=== PATIENT | female | born 1990 | race Caucasian/White ===

== ENCOUNTER 2020-03-28 00:03 | Inpatient (IN) | payer BC ==
[2020-03-28] MEDS ORDERED: Ampicillin 2 GM in Sodium Chloride 0.9% 100 ML IV ONE (00:30)
[2020-03-28] MEDS ORDERED: Nalbuphine 10 MG/ML Syringe IVPUSH PRN (00:40)
[2020-03-28] MEDS ORDERED: Calcium Carbonate 500 MG Tab.Chew PO PRN (00:40)
[2020-03-28] MEDS ORDERED: Sodium Chloride 0.9% 10 ML Syringe FLUSH PRN (00:40)
[2020-03-28] MEDS ORDERED: Lidocaine 1% 50 ML MDV INJECT ONE (00:40)
[2020-03-28] MEDS ORDERED: Oxytocin/Lactated Ringers 10 UNIT/1,000 ML BAG IV SCH ×2 (00:45)
[2020-03-28] MEDS: Lactated Ringers 1,000 ML IV SCH ×3 (01:06→17:00)
[2020-03-28] MEDS ORDERED: Labetalol 100 MG/20 ML MDV IVPUSH ONE (01:44)
[2020-03-28] MEDS ORDERED: Magnesium Sulfate/Water 2 GM in Premix Bag 1 BAG IV ONE (01:45)
[2020-03-28] MEDS ORDERED: Magnesium Sulfate/Water 4 GM in Premix Bag 1 BAG IV ONE (01:45)
[2020-03-28] MEDS ORDERED: Magnesium Sulfate/Water 50 ML ONE (01:46)
[2020-03-28] MEDS: Magnesium Sulfate/Water 40 GM/1,000 ML BAG IV SCH ×2 (02:20→21:16)
[2020-03-28] MEDS ORDERED: Ondansetron 4 MG/2 ML SDV IVPUSH PRN (02:59)
[2020-03-28] MEDS ORDERED: ePHEDrine 50 MG/ML SDV IVPUSH PRN (02:59)
[2020-03-28] MEDS ORDERED: fentaNYL 100 MCG/2 ML SDV EPIDUR PRN (02:59)
[2020-03-28] MEDS ORDERED: Phenylephrine 1 MG in Sodium Chloride 0.9% 10 ML IV SCH (03:00)
--- NOTE | 2020-03-28 03:03 | PCM.PREANE ---
Preanesthetic Assessment - Procedure Proposed Procedure: epidural - Anesthesia/Transfusion/Family Hx Anesthesia History: Prior Anesthesia Without Reaction Family History of Anesthesia Reaction: No Transfusion History: No Prior Transfusion(s) Intubation History: Unknown - Review of Systems General: No Symptoms Pulmonary: No Symptoms Cardiovascular: No Symptoms (PIH) Gastrointestinal: No Symptoms (GERD), Constipation Neurological: No Symptoms (Chronic back pain) Other: Reports: None, Neck Pain (chronic neck pain) - Physical Assessment NPO Status Date: 03/27/20 NPO Status Time: 03:00 Vital Signs: Last Vital Signs Temp 36.7 C 03/28/20 00:40 Pulse 79 03/28/20 00:40 Resp 16 03/28/20 00:40 BP 168/98 H 03/28/20 00:40 Pulse Ox Height: 1.65 m Weight: 99.291 kg ASA Class: 2 Mental Status: Alert & Oriented x3 Airway Class: Mallampati = 2 Dentition: Reports: Normal Dentition, Caries Thyro-Mental Finger Breadths: 3 Mouth Opening Finger Breadths: 3 ROM/Head Extension: Full Lungs: Clear to Auscultation, Normal Respiratory Effort Cardiovascular: Regular Rate, Regular Rhythm, No Murmurs - Lab Values: Laboratory Last Values WBC 10.89 K/mm3 (3.98-10.04) H 03/28/20 01:01 RBC 4.32 M/mm3 (3.98-5.22) 03/28/20 01:01 Hgb 13.0 gm/dl (11.2-15.7) 03/28/20 01:01 Hct 38.8 % (34.1-44.9) 03/28/20 01:01 MCV 89.8 fl (79.4-94.8) 03/28/20 01:01 MCH 30.1 pg (25.6-32.2) 03/28/20 01:01 MCHC 33.5 g/dl (32.2-35.5) 03/28/20 01:01 RDW Std Deviation 44.7 fL (36.4-46.3) 03/28/20 01:01 Plt Count 316 K/mm3 (182-369) 03/28/20 01:01 MPV 10.9 fl (9.4-12.3) 03/28/20 01:01 Neut % (Auto) 70.0 % (34.0-71.1) 03/28/20 01:01 Lymph % (Auto) 20.5 % (19.3-51.7) 03/28/20 01:01 [place] % (Auto) 8.3 % (4.7-12.5) 03/28/20 01:01 Eos % (Auto) 0.6 (0.7-5.8) L 03/28/20 01:01 Baso % (Auto) 0.3 % (0.1-1.2) 03/28/20 01:01 Neut # (Auto) 7.64 K/mm3 (1.56-6.13) H 03/28/20 01:01 Lymph # (Auto) 2.23 K/mm3 (1.18-3.74) 03/28/20 01:01 [place] # (Auto) 0.90 K/mm3 (0.24-0.36) H 03/28/20 01:01 Eos # (Auto) 0.06 K/mm3 (0.04-0.36) 03/28/20 01:01 Baso # (Auto) 0.03 K/mm3 (0.01-0.08) 03/28/20 01:01 BUN 13 mg/dL (7-18) 03/28/20 01:01 Creatinine 0.7 mg/dL (0.55-1.02) 03/28/20 01:01 Est Cr Clr Drug Dosing 105.74 mL/min 03/28/20 01:01 Estimated GFR (MDRD) > 60 mL/min (>60) 03/28/20 01:01 Uric Acid 8.0 mg/dL (2.6-6.0) H 03/28/20 01:01 AST 30 U/L (15-37) 03/28/20 01:01 ALT 24 U/L (14-59) 03/28/20 01:01 Lactate Dehydrogenase 238 U/L (81-234) H 03/28/20 01:01 Ur Random Creatinine 83.6 mg/dL (30.0-125.0) 03/28/20 01:05 U Random Total Protein 246.0 mg/dL (0.0-11.8) H 03/28/20 01:05 Protein/Creatinin Ratio 2942.6 mg/g (0-149) H 03/28/20 01:05 Blood Type A POSITIVE 03/28/20 01:01 Gel Antibody Screen Negative 03/28/20 01:01 Above labs reviewed and noted and within acceptable ranges to proceed with epidural. 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: - SUBSTANCE USE Smoking Status *Q: Never Smoker Second Hand Smoke Exposure: No Recreational Drug Use History: No - HOME MEDS Home Medications: Home Meds PNV95/Ferrous Fumarate/FA [ Multivitamins] 1 each PO DAILY 11/03/14 [ History] Cetirizine HCl [Zyrtec] 10 mg PO 03/28/20 [History] - CURRENT (IN HOUSE) MEDS Current Meds: Current Medications Calcium Carbonate/Glycine (Tums) 1,000 mg PO Q2H PRN PRN Reason: Indigestion Ephedrine Sulfate (Ephedrine Sulfate) 5 mg IVPUSH ASDIRECTED PRN PRN Reason: Hypotension Fentanyl (Sublimaze) 100 mcg EPIDUR Q3H PRN PRN Reason: Pain Fentanyl/Bupivacaine HCl (Fentanyl/Bupivacaine/Ns 2 Mcg-0.125% 100 Ml) 100 ml EPIDUR ASDIRECTED RUDDY Ampicillin Sodium 1 gm/ Sodium (Chloride) 100 mls @ 200 mls/hr IV Q4H RUDDY Lactated Ringer's (Ringers, Lactated) 1,000 mls @ 100 mls/hr IV ASDIRECTED RUDDY Last Admin: 03/28/20 01:06 Dose: 100 mls/hr Oxytocin/Lactated Ringer's (Pitocin In Lr 10 Units/1,000 Ml) 10 unit in 1,000 mls @ 12 mls/hr IV TITRATE RUDDY; Protocol Oxytocin/Lactated Ringer's (Pitocin In Lr 10 Units/1,000 Ml) 10 unit in 1,000 mls @ 500 mls/hr IV .CONTINUOUS RUDDY Magnesium Sulfate (Magnesium Sulfate In Water Premix) 40 gm in 1,000 mls @ 50 mls/hr IV ASDIRECTED RUDDY Last Admin: 03/28/20 02:20 Dose: 50 mls/hr Phenylephrine HCl 1 mg/ Sodium (Chloride) 10.1 mls @ 1 mls/sec IV TITRATE RUDDY; Protocol Nalbuphine HCl (Nubain) 10 mg IVPUSH Q2H PRN PRN Reason: Pain Ondansetron HCl (Zofran) 4 mg IVPUSH ONETIME PRN PRN Reason: Nausea/Vomiting Sodium Chloride (Saline Flush) 10 ml FLUSH ASDIRECTED PRN PRN Reason: Keep Vein Open Discontinued Medications Ampicillin Sodium 2 gm/ Sodium (Chloride) 100 mls @ 200 mls/hr IV ONETIME ONE Stop: 03/28/20 00:59 Last Admin: 03/28/20 01:06 Dose: 200 mls/hr Magnesium Sulfate 4 gm/ Premix 50 mls @ 400 mls/hr IV ONETIME ONE Stop: 03/28/20 01:52 Last Admin: 03/28/20 02:11 Dose: 400 mls/hr Magnesium Sulfate 2 gm/ Premix 50 mls @ 300 mls/hr IV ONETIME ONE Stop: 03/28/20 01:54 Last Admin: 03/28/20 02:00 Dose: 300 mls/hr Magnesium Sulfate (Magnesium Sulfate In Water Premix) Confirm Administered Dose 50 mls @ as directed .ROUTE .STK-MED ONE Stop: 03/28/20 01:47 Last Admin: 03/28/20 02:06 Dose: Not Given Labetalol HCl (Normodyne) 20 mg IVPUSH ONETIME ONE; Protocol Stop: 03/28/20 01:45 Last Admin: 03/28/20 01:58 Dose: 20 mg Lidocaine HCl (Xylocaine 1%) 20 ml INJECT ONETIME ONE Stop: 03/28/20 00:41
[2020-03-28] MEDS: Bupivacaine/fentaNYL/NS 100 ML Bag EPIDUR SCH ×2 (03:10→11:51)
[2020-03-28] MEDS: Ampicillin 1 GM in Sodium Chloride 0.9% 100 ML IV SCH ×3 (04:26→12:39)
--- NOTE | 2020-03-28 07:13 | PCM.LDHP ---
L&D History of Present Illness - General Date of Service: 03/28/20 Admit Problem/Dx: Patient Status Order with Admit Dx/Problem 03/28/20 00:40 Patient Status [ADT] Routine Admission Diagnosis/Problem Admission Diagnosis/Problem Term Source of Information: Patient History Limitations: Reports: No Limitations - History of Present Illness Introduction:: Patient is a 29 y/o at 39 2/7 wks who presented in early AM hours after SROM. SROM occurred at about 2300 yesterday. Some mild contractions after that. No concerns when arrived to L&D, but noted to have severe range BP' s. No headaches or vision changes on arrival and still denies these concerns currently. Only issue is heart burn Pain Score: 5 - Related Data Allergies/Adverse Reactions: Allergies Allergy/AdvReac Type Severity Reaction Status Date / Time No Known Allergies Allergy Verified 11/03/14 23:24 Home Medications: Home Meds PNV95/Ferrous Fumarate/FA [ Multivitamins] 1 each PO DAILY 11/03/14 [ History] Cetirizine HCl [Zyrtec] 10 mg PO 03/28/20 [History] Past Medical History - Past Health History Medical/Surgical History: Denies Medical/Surgical History [employer] History: Reports: : 2 Para: 1 LMP (Approximate): Social & Family History - Family History Family Medical History: Noncontributory - Tobacco Use Smoking Status *Q: Never Smoker Second Hand Smoke Exposure: No - Caffeine Use Caffeine Use: Reports: None - Alcohol Use Alcohol Use History: No - Recreational Drug Use Recreational Drug Use: No H&P Review of Systems - Review of Systems: Review Of Systems: See Below General: Reports: No Symptoms Pulmonary: Reports: No Symptoms Cardiovascular: Reports: No Symptoms Gastrointestinal: Reports: Other (heartburn) Genitourinary: Reports: No Symptoms Musculoskeletal: Reports: No Symptoms Psychiatric: Reports: No Symptoms Neurological: Reports: No Symptoms L&D Exam - Exam Exam: See Below - Vital Signs Vital Signs: Last Vital Signs Temp 36.7 C 03/28/20 00:40 Pulse 79 03/28/20 00:40 Resp 16 03/28/20 00:40 BP 168/98 H 03/28/20 00:40 Pulse Ox Weight: 99.291 kg - OB Specific Contraction Intensity: Moderate Movement: Active Heart Tones: Present Heart Rate (FHR) Variability: Moderate (6-25 bmp) Presentation: Vertex - Gillis Score Gillis Score Cervix Position: Midposition Gillis Score Consistency: Soft Gillis Score Effacement: >80% Gillis Score Dilation: 3-4 cm Gillis Score Infant's Station: -2 Gillis Score Total: 9 - Exam General: Alert, Oriented, Cooperative Lungs: Clear to Auscultation, Normal Respiratory Effort Cardiovascular: Regular Rate, Regular Rhythm GI/Abdominal Exam: Soft, Non-Tender Genitourinary: Normal external exam Extremities: Normal Inspection Skin: Warm, Dry, Intact DTR: 1+: Bicep (R), 2+: Patella (R) - Patient Data Lab Results Last 24 hrs: Laboratory Results - last 24 hr 03/28/20 03/28/20 03/28/20 Range/Units 01:01 01:01 01:01 WBC 10.89 H (3.98-10.04) K/mm3 RBC 4.32 (3.98-5.22) M/mm3 Hgb 13.0 (11.2-15.7) gm/dl Hct 38.8 (34.1-44.9) % MCV 89.8 (79.4-94.8) fl MCH 30.1 (25.6-32.2) pg MCHC 33.5 (32.2-35.5) g/dl RDW Std Deviation 44.7 (36.4-46.3) fL Plt Count 316 (182-369) K/mm3 MPV 10.9 (9.4-12.3) fl Neut % (Auto) 70.0 (34.0-71.1) % Lymph % (Auto) 20.5 (19.3-51.7) % [place] % (Auto) 8.3 (4.7-12.5) % Eos % (Auto) 0.6 L (0.7-5.8) Baso % (Auto) 0.3 (0.1-1.2) % Neut # (Auto) 7.64 H (1.56-6.13) K/mm3 Lymph # (Auto) 2.23 (1.18-3.74) K/mm3 [place] # (Auto) 0.90 H (0.24-0.36) K/mm3 Eos # (Auto) 0.06 (0.04-0.36) K/mm3 Baso # (Auto) 0.03 (0.01-0.08) K/mm3 BUN 13 (7-18) mg/dL Creatinine 0.7 (0.55-1.02) mg/dL Est Cr Clr Drug Dosing 105.74 mL/min Estimated GFR (MDRD) > 60 (>60) mL/min Uric Acid 8.0 H (2.6-6.0) mg/dL AST 30 (15-37) U/L ALT 24 (14-59) U/L Lactate Dehydrogenase 238 H (81-234) U/L Ur Random Creatinine (30.0-125.0) mg/dL U Random Total Protein (0.0-11.8) mg/dL Protein/Creatinin Ratio (0-149) mg/g Blood Type A POSITIVE Gel Antibody Screen Negative 03/28/20 Range/Units 01:05 WBC (3.98-10.04) K/mm3 RBC (3.98-5.22) M/mm3 Hgb (11.2-15.7) gm/dl Hct (34.1-44.9) % MCV (79.4-94.8) fl MCH (25.6-32.2) pg MCHC (32.2-35.5) g/dl RDW Std Deviation (36.4-46.3) fL Plt Count (182-369) K/mm3 MPV (9.4-12.3) fl Neut % (Auto) (34.0-71.1) % Lymph % (Auto) (19.3-51.7) % [place] % (Auto) (4.7-12.5) % Eos % (Auto) (0.7-5.8) Baso % (Auto) (0.1-1.2) % Neut # (Auto) (1.56-6.13) K/mm3 Lymph # (Auto) (1.18-3.74) K/mm3 [place] # (Auto) (0.24-0.36) K/mm3 Eos # (Auto) (0.04-0.36) K/mm3 Baso # (Auto) (0.01-0.08) K/mm3 BUN (7-18) mg/dL Creatinine (0.55-1.02) mg/dL Est Cr Clr Drug Dosing mL/min Estimated GFR (MDRD) (>60) mL/min Uric Acid (2.6-6.0) mg/dL AST (15-37) U/L ALT (14-59) U/L Lactate Dehydrogenase (81-234) U/L Ur Random Creatinine 83.6 (30.0-125.0) mg/dL U Random Total Protein 246.0 H (0.0-11.8) mg/dL Protein/Creatinin Ratio 2942.6 H (0-149) mg/g Blood Type Gel Antibody Screen Result Diagrams: 03/28/20 01:01 03/28/20 01:01 - Problem List (1) 39 weeks gestation of SNOMED Code(s): 03361618 ICD Code: Z3A.39 - 39 WEEKS GESTATION OF Status: Acute Current Visit: Yes (2) Spontaneous rupture of membranes SNOMED Code(s): 973969803 ICD Code: [id number] - Status: Acute Current Visit: Yes (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 SNOMED Code(s): 4112917296624 ICD Code: Z22.330 - CARRIER OF GROUP B STREPTOCOCCUS Status: Acute Current Visit: Yes (4) Severe preeclampsia SNOMED Code(s): 73901740 ICD Code: O14.10 - SEVERE PRE-ECLAMPSIA, UNSPECIFIED TRIMESTER Status: Acute Current Visit: Yes Qualifiers: Trimester: third trimester Qualified Code(s): O14.13 - Severe pre-eclampsia , third trimester Problem List Initiated/Reviewed/Updated: Yes Orders Last 24hrs: Active Orders 24 hr Category Date Time Status Patient Status [ADT] Routine ADT 03/28/20 00:40 Active Activity as Tolerated [RC] PFP Care 03/28/20 00:40 Active Communication Order [RC] ASDIRECTED Care 03/28/20 00:40 Active Heart Tones [RC] ASDIRECTED Care 03/28/20 00:41 Active Notify Provider [RC] ASDIRECTED Care 03/28/20 02:59 Active Notify Provider [RC] PFP Care 03/28/20 00:40 Active Notify Provider [RC] PRN Care 03/28/20 00:40 Active Peripheral IV Care [RC] Q2HR Care 03/28/20 00:41 Active Pulse Oximetry [RC] ASDIRECTED Care 03/28/20 02:59 Active Pump Management, Intrathecal [RC] ASDIRECTED Care 03/28/20 00:44 Active Urinary Catheter Assessment [RC] ASDIRECTED Care 03/28/20 00:40 Active Regular Diet [DIET] Diet 03/28/20 Breakfast Active PATIENT RETYPE [BBK] Routine Lab 03/28/20 01:49 Ordered RAPID PLASMA REAGIN,RPR [CHEM] Stat Lab 03/28/20 01:01 Received TYPE AND SCREEN [BBK] Stat Lab 03/28/20 01:01 Results Ampicillin 1 gm Med 03/28/20 04:30 Active Sodium Chloride 0.9% [Normal Saline] 100 ml IV Q4H Bupivacaine/fentaNYL/NS [fentaNYL/Bupivacaine/NS 2 MCG- Med 03/28/20 03:00 Active 0.125% 100 ML] 100 ml EPIDUR ASDIRECTED Calcium Carbonate [Tums] Med 03/28/20 00:40 Active 1,000 mg PO Q2H PRN Lactated Ringers [Ringers, Lactated] 1,000 ml Med 03/28/20 00:45 Active IV ASDIRECTED Magnesium Sulfate/Water [Magnesium Sulfate in Water Med 03/28/20 01:45 Active Premix] 40 gm in 1,000 ml IV ASDIRECTED Nalbuphine [Nubain] Med 03/28/20 00:40 Active 10 mg IVPUSH Q2H PRN Ondansetron [Zofran] Med 03/28/20 02:59 Active 4 mg IVPUSH ONETIME PRN Oxytocin/Lactated Ringers [Pitocin in LR 10 Units/1,000 Med 03/28/20 00:45 Active ML] 10 unit in 1,000 ml IV .CONTINUOUS Oxytocin/Lactated Ringers [Pitocin in LR 10 Units/1,000 Med 03/28/20 00:45 Active ML] 10 unit in 1,000 ml IV TITRATE Phenylephrine [Otilio-Synephrine] 1 mg Med 03/28/20 03:00 Active Sodium Chloride 0.9% [Normal Saline] 10 ml IV TITRATE Sodium Chloride 0.9% [Saline Flush] Med 03/28/20 00:40 Active 10 ml FLUSH ASDIRECTED PRN ePHEDrine [ePHEDrine sulfate] Med 03/28/20 02:59 Active 5 mg IVPUSH ASDIRECTED PRN fentaNYL [Sublimaze] Med 03/28/20 02:59 Active 100 mcg EPIDUR Q3H PRN Electronic Heart Tones Ext w TOCO [WOMSER] Oth 03/28/20 00:40 Ordered Routine Electronic Heart Tones Internal [WOMSER] Per Unit Oth 03/28/20 00:40 Ordered Routine PIH Panel [OM.PC] Stat Oth 03/28/20 00:40 Ordered Peripheral IV Insertion Adult [OM.PC] Routine Oth 03/28/20 00:40 Ordered Resuscitation Status Routine Resus Stat 03/28/20 00:40 Ordered Medication Orders Calcium Carbonate/Glycine (Tums) 1,000 mg PO Q2H PRN PRN Reason: Indigestion Ephedrine Sulfate (Ephedrine Sulfate) 5 mg IVPUSH ASDIRECTED PRN PRN Reason: Hypotension Fentanyl (Sublimaze) 100 mcg EPIDUR Q3H PRN PRN Reason: Pain Last Admin: 03/28/20 03:10 Dose: 100 mcg Fentanyl/Bupivacaine HCl (Fentanyl/Bupivacaine/Ns 2 Mcg-0.125% 100 Ml) 100 ml EPIDUR ASDIRECTED [facility] Last Admin: 03/28/20 03:10 Dose: 100 ml Ampicillin Sodium 1 gm/ Sodium (Chloride) 100 mls @ 200 mls/hr IV Q4H [facility] Last Admin: 03/28/20 04:26 Dose: 200 mls/hr Lactated Ringer's (Ringers, Lactated) 1,000 mls @ 100 mls/hr IV ASDIRECTED [facility] Last Admin: 03/28/20 03:23 Dose: 100 mls/hr Infusion: 03/28/20 03:23 Dose: 999 mls/hr Admin: 03/28/20 01:06 Dose: 100 mls/hr Oxytocin/Lactated Ringer's (Pitocin In Lr 10 Units/1,000 Ml) 10 unit in 1,000 mls @ 12 mls/hr IV TITRATE [facility]; Protocol Last Titration: 03/28/20 06:00 Dose: 10 munits/min, 60 mls/hr Titration: 03/28/20 05:30 Dose: 8 munits/min, 48 mls/hr Titration: 03/28/20 05:00 Dose: 6 munits/min, 36 mls/hr Titration: 03/28/20 04:27 Dose: 4 munits/min, 24 mls/hr Admin: 03/28/20 03:52 Dose: 2 munits/min, 12 mls/hr Oxytocin/Lactated Ringer's (Pitocin In Lr 10 Units/1,000 Ml) 10 unit in 1,000 mls @ 500 mls/hr IV .CONTINUOUS RUDDY Magnesium Sulfate (Magnesium Sulfate In Water Premix) 40 gm in 1,000 mls @ 50 mls/hr IV ASDIRECTED RUDDY Last Admin: 03/28/20 02:20 Dose: 50 mls/hr Phenylephrine HCl 1 mg/ Sodium (Chloride) 10.1 mls @ 1 mls/sec IV TITRATE RUDDY; Protocol Nalbuphine HCl (Nubain) 10 mg IVPUSH Q2H PRN PRN Reason: Pain Ondansetron HCl (Zofran) 4 mg IVPUSH ONETIME PRN PRN Reason: Nausea/Vomiting Sodium Chloride (Saline Flush) 10 ml FLUSH ASDIRECTED PRN PRN Reason: Keep Vein Open Assessment/Plan Comment:: * Severe range BP's on admission treated with 1 dose of 20 mg IV labetalol and then magnesium. Currently BP's in upper mild range. Doing well. Labs on admission normal other than elevated urine protein to creatinine ratio. Will plan on repeating in 12 hours after 1st drawn. Plan magnesium for 24 hours following delivery * On pitocin for augmentation after SROM * Ampicillin for GBS positive status * Epidural in place * Anticipate
[2020-03-28] MEDS ORDERED: Famotidine 20 MG Tab PO ONE (08:02)
[2020-03-28] MEDS ORDERED: Calcium Gluconate 10% 1 GM/10 ML SDV IV PRN (08:35)
[2020-03-28] MEDS ORDERED: Oxytocin/Lactated Ringers 20 UNIT/1,000 ML BAG IV SCH (09:00)
--- NOTE | 2020-03-28 11:37 | PCM.PNLD ---
Labor Progress Note - Uterine Contractions Uterine Monitoring Mode: External [place] Contraction Intensity: Moderate to Strong - Monitoring Monitor Mode: External Ultrasound Heart Rate (FHR) Baseline: 135 Heart Rate (FHR) Variability: Moderate (6-25 bmp) Accelerations: Present, 15x15 Decelerations: Variable Strip Review: Category II - Vaginal Exam Dilation (cm): 5 Effacement (Percent): 80 Station: 0 Cervical Position: Anterior - Labor Progress (Free Text) Labor Progress: Patient overall doing well. Feeling warm/flushed with magnesium. BP's are normal to mild range. Good UOP. Will get labs now. Pitocin at 20. Continue per protocol. Anticipate . Exam - Exam Exam: See Below - Vital Signs Weight: 99.291 kg - Exam General: Alert, Oriented, Cooperative Lungs: Clear to Auscultation, Normal Respiratory Effort Cardiovascular: Regular Rate, Regular Rhythm Extremities: Normal Inspection, Pedal Edema Neurological: Reflexes Equal Bilateral (+2) DTR: 2+: Patella (R) Psychiatric: Alert, Normal Affect, Normal Mood
[2020-03-28] MEDS ORDERED: Acetaminophen 325 MG Tab PO PRN (13:26)
[2020-03-28] MEDS ORDERED: Benzocaine/Menthol 20%-0.5% Spray 56 GM Canister TOP PRN (13:26)
[2020-03-28] MEDS ORDERED: Docusate Sodium 100 MG Cap PO PRN (13:26)
[2020-03-28] MEDS ORDERED: Witch Hazel Medicated Pads 40/Jar TOP PRN (13:26)
--- NOTE | 2020-03-28 13:28 | PCM.DEL ---
L & D Note - General Info Date of Service: 03/28/20 - Delivery Note Labor: Augmented by Oxytocin Delivery Outcome: Livebirth Delivery Method: Spontaneous Vaginal Delivery-Single Delivery Mode: Spontaneous Presentation: Right Occiput Anterior (RASHID) Nuchal Cord: Present (tight, not reduced ) Anesthesia Type: Epidural Amniotic Fluid Description: Clear Episiotomy Type: None Laceration: None Placenta: Intact, Spontaneous Cord: 3 Vessels Estimated Blood Loss: 300 Resuscitation Needed: Yes [place]: Bulb Syringe, Stimulated, Warmed, [place] Used, Warmer Used Delivery Comments (Free Text/Narrative):: Patient found to be complete and began pushing. With maternal pushign effort head delivered from an RASHID presentation. Nuchal cord present, but tight and so not reduced. With gentle downward tractions the shoulders and body delivered. placed on maternal abdomen. Cord clamped and cut. Cord blood obtained. Placenta allowed time to separate and expelled intact. Inspection of the perineum showed no lacerations - General Info Date of Service: 03/28/20 - Patient Data Vitals - Most Recent: Last Vital Signs Temp 36.7 C 03/28/20 00:40 Pulse 79 03/28/20 00:40 Resp 16 03/28/20 00:40 BP 168/98 H 03/28/20 00:40 Pulse Ox Weight - Most Recent: 99.291 kg I&O - Last 24 Hours: Intake & Output 03/27/20 03/28/20 03/28/20 22:59 06:59 14:59 Intake Total 2962 Output Total 1450 Balance 1512 - Problem List & Annotations (1) 39 weeks gestation of SNOMED Code(s): 24385821 Code(s): Z3A.39 - 39 WEEKS GESTATION OF Status: Acute Current Visit: Yes (2) Spontaneous rupture of membranes SNOMED Code(s): 494247976 Code(s): CJD9533 - Status: Acute Current Visit: Yes (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 SNOMED Code(s): 9956190360758 Code(s): Z22.330 - CARRIER OF GROUP B STREPTOCOCCUS Status: Acute Current Visit: Yes (4) Severe preeclampsia SNOMED Code(s): 69521248 Code(s): O14.10 - SEVERE PRE-ECLAMPSIA, UNSPECIFIED TRIMESTER Status: Acute Current Visit: Yes Qualifiers: Trimester: third trimester Qualified Code(s): O14.13 - Severe pre-eclampsia , third trimester (5) Vaginal delivery SNOMED Code(s): 996448230 Code(s): O80 - ENCOUNTER FOR FULL-TERM UNCOMPLICATED DELIVERY Status: Acute Current Visit: Yes - Problem List Review Problem List Initiated/Reviewed/Updated: Yes - My Orders Last 24 Hours: My Active Orders 03/28/20 00:40 Sodium Chloride 0.9% [Saline Flush] 10 ml FLUSH ASDIRECTED PRN Resuscitation Status Routine 03/28/20 00:41 Heart Tones [RC] ASDIRECTED 03/28/20 00:44 Pump Management, Intrathecal [RC] ASDIRECTED 03/28/20 00:45 Lactated Ringers [Ringers, Lactated] 1,000 ml IV ASDIRECTED 03/28/20 01:01 RAPID PLASMA REAGIN,RPR [CHEM] Stat 03/28/20 01:45 Magnesium Sulfate/Water [Magnesium Sulfate in Water Premix] 40 gm in 1,000 ml IV ASDIRECTED 03/28/20 01:49 PATIENT RETYPE [BBK] Routine 03/28/20 08:34 Intake and Output Strict [RC] Q2HR 03/28/20 08:35 Communication Order [RC] ASDIRECTED Notify Provider Status Change [RC] ASDIRECTED Notify Provider Vital Signs [RC] ASDIRECTED Notify Provider [RC] ASDIRECTED Oxygen Therapy [RC] PRN Calcium Gluconate 1 gm IV ASDIRECTED PRN 03/28/20 08:45 Deep Tendon Reflexes [WOMSER] ASDIRECTED 03/28/20 12:00 MAGNESIUM [CHEM] Routine 03/28/20 13:26 Vital Signs [RC] ASDIRECTED Acetaminophen [Tylenol] 650 mg PO Q4H PRN Benzocaine/Menthol [Dermoplast Pain Relief [place]] See Dose Instructions TOP ASDIRECTED PRN Docusate Sodium [Colace] 100 mg PO BID PRN Ibuprofen [Motrin] 600 mg PO Q6H PRN witch David [Tucks] 1 pad TOP ASDIRECTED PRN Assess Lochia [WOMSER] Per Unit Routine Assess Uterine Involution [WOMSER] Per Unit Routine Breast Pump [WOMSER] Per Unit Routine Ice Therapy [OM.PC] Per Unit Routine Perineal Care [OM.PC] Per Unit Routine Sitz Bath [OM.PC] Per Unit Routine 03/28/20 13:30 Heat Therapy [OM.PC] PRN 03/28/20 Dinner Regular Diet [DIET] 03/29/20 13:30 Heat Therapy [OM.PC] PRN - Assessment Assessment:: PPD#0 - Plan Plan:: * Continue magnesium for 24 hour along with strict I&O's and q2 reflex checks * General diet * Breast feeding * Discharge home in 2 days
[2020-03-28] MEDS: Ibuprofen 600 MG Tab PO PRN ×2 (13:46→20:17)
[2020-03-29] MEDS ORDERED: Bupivacaine 0.25% 10 ML SDV ONE
[2020-03-29] MEDS: Ibuprofen 600 MG Tab PO PRN ×2 (02:21→22:01)
[2020-03-29] MEDS: Lactated Ringers 1,000 ML IV SCH (07:00)
--- NOTE | 2020-03-29 07:08 | PCM.PNPP ---
- General Info Date of Service: 03/29/20 Functional Status: Reports: Pain Controlled - Review of Systems General: Reports: No Symptoms HEENT: Reports: Headaches (mild over night, better for last 4 hrs) Pulmonary: Reports: No Symptoms Cardiovascular: Reports: No Symptoms Gastrointestinal: Reports: No Symptoms Genitourinary: Reports: No Symptoms Musculoskeletal: Reports: No Symptoms Skin: Reports: No Symptoms Neurological: Reports: No Symptoms Psychiatric: Reports: No Symptoms - General Info Date of Service: 03/29/20 - Patient Data Vital Signs - Most Recent: Last Vital Signs Temp 36.6 C 03/29/20 05:17 Pulse 89 03/29/20 05:17 Resp 14 03/29/20 05:17 BP 140/78 03/29/20 05:17 Pulse Ox 97 03/29/20 05:17 Weight - Most Recent: 99.291 kg I&O - Last 24 Hours: Intake & Output 03/28/20 03/29/20 03/29/20 22:59 06:59 14:59 Intake Total 2875 1600 Output Total 4200 1800 Balance -1325 -200 Lab Results - Last 24 Hours: Laboratory Results - last 24 hr 03/28/20 03/28/20 03/28/20 Range/Units 01:01 11:40 11:40 WBC 14.78 H (3.98-10.04) K/mm3 RBC 4.30 (3.98-5.22) M/mm3 Hgb 12.8 (11.2-15.7) gm/dl Hct 38.3 (34.1-44.9) % MCV 89.1 (79.4-94.8) fl MCH 29.8 (25.6-32.2) pg MCHC 33.4 (32.2-35.5) g/dl RDW Std Deviation 44.6 (36.4-46.3) fL Plt Count 305 (182-369) K/mm3 MPV 10.9 (9.4-12.3) fl Creatinine 0.8 (0.55-1.02) mg/dL Est Cr Clr Drug Dosing 92.53 mL/min Estimated GFR (MDRD) > 60 (>60) mL/min Magnesium (1.8-2.4) mg/dl AST (15-37) U/L ALT (14-59) U/L RPR Non-reactive (NONREACTIVE) 03/28/20 03/28/20 Range/Units 11:40 11:40 WBC (3.98-10.04) K/mm3 RBC (3.98-5.22) M/mm3 Hgb (11.2-15.7) gm/dl Hct (34.1-44.9) % MCV (79.4-94.8) fl MCH (25.6-32.2) pg MCHC (32.2-35.5) g/dl RDW Std Deviation (36.4-46.3) fL Plt Count (182-369) K/mm3 MPV (9.4-12.3) fl Creatinine (0.55-1.02) mg/dL Est Cr Clr Drug Dosing mL/min Estimated GFR (MDRD) (>60) mL/min Magnesium 4.9 H (1.8-2.4) mg/dl AST 22 (15-37) U/L ALT 20 (14-59) U/L RPR (NONREACTIVE) Med Orders - Current: Current Medications Acetaminophen (Tylenol) 650 mg PO Q4H PRN PRN Reason: mild pain or fever Benzocaine/Menthol (Dermoplast Pain Relief [place]) 0 gm TOP ASDIRECTED PRN PRN Reason: Perineal Comfort Measure Last Admin: 03/28/20 13:45 Dose: 1 can Calcium Gluconate (Calcium Gluconate) 1 gm IV ASDIRECTED PRN PRN Reason: respiratory distress Docusate Sodium (Colace) 100 mg PO BID PRN PRN Reason: Constipation Magnesium Sulfate (Magnesium Sulfate In Water Premix) 40 gm in 1,000 mls @ 50 mls/hr IV ASDIRECTED [facility] Last Admin: 03/28/20 21:16 Dose: 50 mls/hr Lactated Ringer's (Ringers, Lactated) 1,000 mls @ 75 mls/hr IV ASDIRECTED [facility] Last Admin: 03/29/20 07:00 Dose: 75 mls/hr Ibuprofen (Motrin) 600 mg PO Q6H PRN PRN Reason: Mild pain or fever Last Admin: 03/29/20 02:21 Dose: 600 mg Sodium Chloride (Saline Flush) 10 ml FLUSH ASDIRECTED PRN PRN Reason: Keep Vein Open Witch Twila (Tucks) 1 pad TOP ASDIRECTED PRN PRN Reason: Perineal Comfort Measure Last Admin: 03/28/20 13:46 Dose: 1 tub Discontinued Medications Calcium Carbonate/Glycine (Tums) 1,000 mg PO Q2H PRN PRN Reason: Indigestion Last Admin: 03/28/20 08:23 Dose: 1,000 mg Ephedrine Sulfate (Ephedrine Sulfate) 5 mg IVPUSH ASDIRECTED PRN PRN Reason: Hypotension Famotidine (Pepcid) 20 mg PO ONETIME ONE Stop: 03/28/20 08:03 Last Admin: 03/28/20 08:14 Dose: 20 mg Fentanyl (Sublimaze) 100 mcg EPIDUR Q3H PRN PRN Reason: Pain Last Admin: 03/28/20 03:10 Dose: 100 mcg Fentanyl/Bupivacaine HCl (Fentanyl/Bupivacaine/Ns 2 Mcg-0.125% 100 Ml) 100 ml EPIDUR ASDIRECTED [facility] Last Admin: 03/28/20 11:51 Dose: 100 ml Ampicillin Sodium 2 gm/ Sodium (Chloride) 100 mls @ 200 mls/hr IV ONETIME ONE Stop: 03/28/20 00:59 Last Admin: 03/28/20 01:06 Dose: 200 mls/hr Ampicillin Sodium 1 gm/ Sodium (Chloride) 100 mls @ 200 mls/hr IV Q4H [facility] Last Admin: 03/28/20 12:39 Dose: 200 mls/hr Lactated Ringer's (Ringers, Lactated) 1,000 mls @ 100 mls/hr IV ASDIRECTED [facility] Last Admin: 03/28/20 03:23 Dose: 100 mls/hr Oxytocin/Lactated Ringer's (Pitocin In Lr 10 Units/1,000 Ml) 10 unit in 1,000 mls @ 12 mls/hr IV TITRATE RUDDY; Protocol Last Titration: 03/28/20 09:00 Dose: 0 munits/min, 0 mls/hr Oxytocin/Lactated Ringer's (Pitocin In Lr 10 Units/1,000 Ml) 10 unit in 1,000 mls @ 500 mls/hr IV .CONTINUOUS RUDDY Magnesium Sulfate 4 gm/ Premix 50 mls @ 400 mls/hr IV ONETIME ONE Stop: 03/28/20 01:52 Last Admin: 03/28/20 02:11 Dose: 400 mls/hr Magnesium Sulfate 2 gm/ Premix 50 mls @ 300 mls/hr IV ONETIME ONE Stop: 03/28/20 01:54 Last Admin: 03/28/20 02:00 Dose: 300 mls/hr Magnesium Sulfate (Magnesium Sulfate In Water Premix) Confirm Administered Dose 50 mls @ as directed .ROUTE .STK-MED ONE Stop: 03/28/20 01:47 Last Admin: 03/28/20 02:06 Dose: Not Given Phenylephrine HCl 1 mg/ Sodium (Chloride) 10.1 mls @ 1 mls/sec IV TITRATE RUDDY; Protocol Oxytocin/Lactated Ringer's (Pitocin In Lr 20 Units/1,000 Ml) 20 unit in 1,000 mls @ 6 mls/hr IV TITRATE RUDDY; Protocol Last Admin: 03/28/20 09:00 Dose: 6 mls/hr Labetalol HCl (Normodyne) 20 mg IVPUSH ONETIME ONE; Protocol Stop: 03/28/20 01:45 Last Admin: 03/28/20 01:58 Dose: 20 mg Lidocaine HCl (Xylocaine 1%) 20 ml INJECT ONETIME ONE Stop: 03/28/20 00:41 Nalbuphine HCl (Nubain) 10 mg IVPUSH Q2H PRN PRN Reason: Pain Ondansetron HCl (Zofran) 4 mg IVPUSH ONETIME PRN PRN Reason: Nausea/Vomiting - Interaction Support Person: - Recovery Exam Fundal Tone: Firm Fundal Level: 1 Fingerbreadths Below Umbilicus Fundal Placement: Midline Lochia Amount: Small Lochia Color: Rubra/Red Perineum Description: Intact, Minimal Bruising/Swelling Episiotomy/Laceration: None Bladder Status: Nonpalpable, Voiding Urinary Elimination: Voided - Exam General: Alert, Oriented HEENT: Pupils Equal Neck: Supple Lungs: Clear to Auscultation, Normal Respiratory Effort Cardiovascular: Regular Rate, Regular Rhythm GI/Abdominal Exam: Normal Bowel Sounds, Soft, Non-Tender, No Organomegaly, No Distention, No Abnormal Bruit, No Mass, Pelvis Stable Extremities: Normal Inspection, Normal Range of Motion, Non-Tender Neurological: No New Focal Deficit Psy/Mental Status: Alert, Normal Affect, Normal Mood - Problem List Review Problem List Initiated/Reviewed/Updated: Yes - Assessment Assessment:: PPD#1 - Plan Plan:: * Continue magnesium for 24 hour along with strict I&O's and q4 reflex checks * Good urine output. * General diet * Breast feeding * Discharge home in 2 days
--- NOTE | 2020-03-29 11:20 | PCM48HPAN ---
Post Anesthesia Note - EVALUATION WITHIN 48HRS OF ANESTHETIC Vital Signs in Normal Range: Yes Patient Participated in Evaluation: Yes Respiratory Function Stable: Yes Airway Patent: Yes Cardiovascular Function Stable: Yes Hydration Status Stable: Yes Pain Control Satisfactory: Yes Nausea and Vomiting Control Satisfactory: Yes Mental Status Recovered: Yes Vital Signs: Last Vital Signs Temp 36.6 C 03/29/20 05:17 Pulse 89 03/29/20 05:17 Resp 14 03/29/20 05:17 BP 140/78 03/29/20 05:17 Pulse Ox 97 03/29/20 05:17 - COMMENTS/OBSERVATIONS Free Text/Narrative:: no anesthesia complications noted
[2020-03-30] MEDS: Ibuprofen 600 MG Tab PO PRN (04:41)
--- NOTE | 2020-03-30 05:57 | PCM.DCSUM1 ---
Discharge Summary - Hospital Course Brief History: Presented in labor. Found to have severe range blood pressures. Magnesium initiated. Uncomplicated delivery. Maintained on magnesium 24 hours. Blood pressures improved. No symptoms . Diagnosis: Stroke: No - Discharge Data Discharge Date: 03/30/20 Discharge Disposition: Home, Self-Care 01 Condition: Good - Referral to Home Health Primary Care Physician: Deann Armando MD - Patient Instructions Diet: Usual Diet as Tolerated Activity: No Strenuous Activities Activity, Other: pelvic rest Driving: Do Not Drive Showering/Bathing: May Shower Notify Provider of: Fever, Increased Pain, Swelling and Redness, Drainage, Nausea and/or Vomiting - Discharge Plan *PRESCRIPTION DRUG MONITORING PROGRAM REVIEWED*: No *COPY OF PRESCRIPTION DRUG MONITORING REPORT IN PATIENT JOJO: No Home Medications: Home Meds PNV95/Ferrous Fumarate/FA [ Multivitamins] 1 each PO DAILY 11/03/14 [ History] Cetirizine HCl [Zyrtec] 10 mg PO 03/28/20 [History] Referrals: Deann Armando MD [Primary Care Provider] - (1 week) - Discharge Summary/Plan Comment DC Time >30 min.: No - General Info Date of Service: 03/30/20 Functional Status: Reports: Pain Controlled - Review of Systems General: Reports: No Symptoms HEENT: Reports: No Symptoms Pulmonary: Reports: No Symptoms Cardiovascular: Reports: No Symptoms Gastrointestinal: Reports: No Symptoms Genitourinary: Reports: No Symptoms Musculoskeletal: Reports: No Symptoms Skin: Reports: No Symptoms Neurological: Reports: No Symptoms Psychiatric: Reports: No Symptoms - Patient Data Vitals - Most Recent: Last Vital Signs Temp 36.8 C 03/30/20 04:35 Pulse 71 03/30/20 04:35 Resp 16 03/30/20 04:35 BP 146/77 H 03/30/20 04:35 Pulse Ox 98 03/30/20 04:35 Weight - Most Recent: 99.291 kg I&O - Last 24 hours: Intake & Output 03/29/20 03/29/20 03/30/20 14:59 22:59 06:59 Intake Total 1550 1300 Output Total 2500 1600 Balance -950 -300 Med Orders - Current: Current Medications Acetaminophen (Tylenol) 650 mg PO Q4H PRN PRN Reason: mild pain or fever Benzocaine/Menthol (Dermoplast Pain Relief [place]) 0 gm TOP ASDIRECTED PRN PRN Reason: Perineal Comfort Measure Last Admin: 03/28/20 13:45 Dose: 1 can Calcium Gluconate (Calcium Gluconate) 1 gm IV ASDIRECTED PRN PRN Reason: respiratory distress Docusate Sodium (Colace) 100 mg PO BID PRN PRN Reason: Constipation Last Admin: 03/29/20 13:21 Dose: 100 mg Magnesium Sulfate (Magnesium Sulfate In Water Premix) 40 gm in 1,000 mls @ 50 mls/hr IV ASDIRECTED [facility] Last Admin: 03/28/20 21:16 Dose: 50 mls/hr Lactated Ringer's (Ringers, Lactated) 1,000 mls @ 75 mls/hr IV ASDIRECTED [facility] Last Admin: 03/29/20 07:00 Dose: 75 mls/hr Ibuprofen (Motrin) 600 mg PO Q6H PRN PRN Reason: Mild pain or fever Last Admin: 03/30/20 04:41 Dose: 600 mg Sodium Chloride (Saline Flush) 10 ml FLUSH ASDIRECTED PRN PRN Reason: Keep Vein Open Witjuan david Mattson (Tucks) 1 pad TOP ASDIRECTED PRN PRN Reason: Perineal Comfort Measure Last Admin: 03/28/20 13:46 Dose: 1 tub Discontinued Medications Calcium Carbonate/Glycine (Tums) 1,000 mg PO Q2H PRN PRN Reason: Indigestion Last Admin: 03/28/20 08:23 Dose: 1,000 mg Ephedrine Sulfate (Ephedrine Sulfate) 5 mg IVPUSH ASDIRECTED PRN PRN Reason: Hypotension Famotidine (Pepcid) 20 mg PO ONETIME ONE Stop: 03/28/20 08:03 Last Admin: 03/28/20 08:14 Dose: 20 mg Fentanyl (Sublimaze) 100 mcg EPIDUR Q3H PRN PRN Reason: Pain Last Admin: 03/28/20 03:10 Dose: 100 mcg Fentanyl/Bupivacaine HCl (Fentanyl/Bupivacaine/Ns 2 Mcg-0.125% 100 Ml) 100 ml EPIDUR ASDIRECTED [facility] Last Admin: 03/28/20 11:51 Dose: 100 ml Ampicillin Sodium 2 gm/ Sodium (Chloride) 100 mls @ 200 mls/hr IV ONETIME ONE Stop: 03/28/20 00:59 Last Admin: 03/28/20 01:06 Dose: 200 mls/hr Ampicillin Sodium 1 gm/ Sodium (Chloride) 100 mls @ 200 mls/hr IV Q4H [facility] Last Admin: 03/28/20 12:39 Dose: 200 mls/hr Lactated Ringer's (Ringers, Lactated) 1,000 mls @ 100 mls/hr IV ASDIRECTED [facility] Last Admin: 03/28/20 03:23 Dose: 100 mls/hr Oxytocin/Lactated Ringer's (Pitocin In Lr 10 Units/1,000 Ml) 10 unit in 1,000 mls @ 12 mls/hr IV TITRATE [facility]; Protocol Last Titration: 03/28/20 09:00 Dose: 0 munits/min, 0 mls/hr Oxytocin/Lactated Ringer's (Pitocin In Lr 10 Units/1,000 Ml) 10 unit in 1,000 mls @ 500 mls/hr IV .CONTINUOUS [facility]UD[facility] Magnesium Sulfate 4 gm/ Premix 50 mls @ 400 mls/hr IV ONETIME ONE Stop: 03/28/20 01:52 Last Admin: 03/28/20 02:11 Dose: 400 mls/hr Magnesium Sulfate 2 gm/ Premix 50 mls @ 300 mls/hr IV ONETIME ONE Stop: 03/28/20 01:54 Last Admin: 03/28/20 02:00 Dose: 300 mls/hr Magnesium Sulfate (Magnesium Sulfate In Water Premix) Confirm Administered Dose 50 mls @ as directed .ROUTE .STK-MED ONE Stop: 03/28/20 01:47 Last Admin: 03/28/20 02:06 Dose: Not Given Phenylephrine HCl 1 mg/ Sodium (Chloride) 10.1 mls @ 1 mls/sec IV TITRATE [facility]; Protocol Oxytocin/Lactated Ringer's (Pitocin In Lr 20 Units/1,000 Ml) 20 unit in 1,000 mls @ 6 mls/hr IV TITRATE [facility]UD[facility]; Protocol Last Admin: 03/28/20 09:00 Dose: 6 mls/hr Labetalol HCl (Normodyne) 20 mg IVPUSH ONETIME ONE; Protocol Stop: 03/28/20 01:45 Last Admin: 03/28/20 01:58 Dose: 20 mg Lidocaine HCl (Xylocaine 1%) 20 ml INJECT ONETIME ONE Stop: 03/28/20 00:41 Nalbuphine HCl (Nubain) 10 mg IVPUSH Q2H PRN PRN Reason: Pain Ondansetron HCl (Zofran) 4 mg IVPUSH ONETIME PRN PRN Reason: Nausea/Vomiting - Exam General: Reports: Alert, Oriented HEENT: Reports: Pupils Equal, Pupils Reactive, EOMI, Mucous Membr. Moist/[place] Neck: Reports: Supple Lungs: Reports: Clear to Auscultation, Normal Respiratory Effort Cardiovascular: Reports: Regular Rate, Regular Rhythm GI/Abdominal Exam: Normal Bowel Sounds, Soft, Non-Tender, No Organomegaly, No Distention, No Abnormal Bruit, No Mass, Pelvis Stable Back Exam: Reports: Normal Inspection, Full Range of Motion Extremities: Normal Inspection, Normal Range of Motion, Non-Tender, No Pedal Edema, Normal Capillary Refill, Other (1+ patellar reflexes) Skin: Reports: Warm, Dry, Intact Wound/Incisions: Reports: Healing Well Neurological: Reports: No New Focal Deficit Psy/Mental Status: Reports: Alert, Normal Affect, Normal Mood
[2020-03-30 15:00] VITALS: PULSE 69
[2020-03-30 15:43] VITALS: BP 157/87
== END 2020-03-30 13:30 | disposition home or self-care (01) | DRG 560 ==
LOC: JD.OBCHECK 00:03 → JD.OB 00:03 → JD.OBCHECK 00:39 → JD.OB 00:40 → OBSVTOIN 13:06 → JD.OB 13:07
PROVIDERS: ADMIT Obstetrics & Gynecology; ATTEND Obstetrics & Gynecology
PROC: 10E0XZZ Delivery of Products of Conception, External Approach (ICD-10-PCS; principal; 2020-03-28)
PROC: 3E0R3BZ Introduction of Anesthetic Agent into Spinal Canal, Percutaneous Approach (ICD-10-PCS; 2020-03-28)
PROC: 10907ZC Drainage of Amniotic Fluid, Therapeutic from Products of Conception, Via Natural or Artificial Opening (ICD-10-PCS; 2020-03-28)
DX: O99.824 Streptococcus B carrier state complicating childbirth (principal); Z3A.39 39 weeks gestation of pregnancy; Z37.0 Single live birth; O14.14 Severe pre-eclampsia complicating childbirth; O69.81X0 Labor and delivery complicated by cord around neck, without compression, not applicable or unspecified
CPT/HCPCS: 36415; 51702; 59025; 59409; 82565; 82570; 83615; 83735; 84156; 84450; 84460; 84520; 84550; 85025; 85027; 86592; 86850; 86900; 86901; A9270-GY; J0290; J2590; J3010; J3475; J3490; J7050; J7120